=== PATIENT | male | born 1960 | race Caucasian/White ===

== ENCOUNTER 2018-08-20 17:51 | Observation (INO) | payer OTHER ==
[2018-08-20] MEDS ORDERED: DIPHENHYDRAMINE 50 MG/ML VIAL ONE (19:01)
--- NOTE | 2018-08-20 19:07 | RAD REPORT ---
EXAM DESCRIPTION: RAD - Chest Single View - 08/20/2018 6:26 pm CLINICAL HISTORY: Shortness of breath COMPARISON: None. TECHNIQUE: AP portable chest image was obtained 1821 hours . FINDINGS: Interstitial markings are prominent favored to be chronic interstitial lung disease. Patch y increased density retrocardiac left base is present. A minimal infiltrate is not excluded. Right co stophrenic angle is obscured from view. Heart size is normal. No acute vascular finding. Biapical sca rring and calcification of the pleura. No measurable pleural effusion and no pneumothorax. No acute b fransico abnormality seen. No acute aortic findings suspected. IMPRESSION: Suspected early retrocardiac left base infiltrate. Chronic interstitial lung disease and apical scarring.
[2018-08-20 19:10] LABS: Absolute Lymphocytes (CBC) 1.2 K/uL (0.7-4.9); Absolute Monocytes 0.4 K/uL (0.1-1.3); Absolute Neutrophil 5.7 K/uL (1.8-8.0); Basophils % 0.7 % (0-1.3); Eosinophils % 1.2 % (0-4.4); Lymphocytes % 16.4 % (15.3-44.8); MPV 8.1 fL (7.6-11.3); Monocytes % 5.9 % (3.3-12.3); RBC Red Blood Cell Count 4.88 M/uL (4.33-5.43)
[2018-08-20 19:16] LABS: Protime INR 1.19
[2018-08-20 19:31] LABS: ALT/SGPT 7 U/L (12-78); AST/SGOT 12 U/L (15-37); Alkaline Phosphatase 112 U/L (45-117); BUN Blood Urea Nitrogen 5 mg/dL (7-18); Bicarbonate 31 mmol/L (21-32); Bilirubin Direct 0.2 mg/dL (0-0.2); Bilirubin Total 0.4 mg/dL (0.2-1.0); Glucose Level 113 mg/dL (74-106); Magnesium 1.5 mg/dL (1.8-2.4); Protein, Total 7.3 g/dL (6.4-8.2); Sodium Level 139 mmol/L (136-145)
[2018-08-20 19:33] LABS: Potassium 2.8 mmol/L (3.5-5.1)
--- NOTE | 2018-08-20 19:42 | RAD REPORT ---
EXAM DESCRIPTION: CT - Head Brain Wo Cont - 08/20/2018 7:28 pm CLINICAL HISTORY: Transient alteration of awareness COMPARISON: None. TECHNIQUE: Axial 5 mm thick images of the head were obtained without IV contrast. All CT scans are performed using dose optimization technique as appropriate and may include automated exposure control or mA/KV adjustment according to patient size. FINDINGS: No intracranial hemorrhage, mass, edema or shift of mid-line structures. No acute infarcti on changes seen. No abnormal extra-axial fluid collections. Ventricles are normal. Partially visualized paranasal sinuses are clear. Right mastoid air cells are clear. There is near co mplete opacification of the left mastoid air cells. No bone destruction. No acute bony findings. IMPRESSION: No acute intracranial finding. Left-sided mastoiditis.
[2018-08-20] MEDS ORDERED: AZITHROMYCIN 500 MG/250 ML BAG ONE (20:01)
[2018-08-20] MEDS ORDERED: KCL 20 MEQ/100 mL IVPB 20 MEQ/100 ML BAG IV ONE (20:01)
[2018-08-20] MEDS ORDERED: NA CHLORIDE 0.9% 1,000 ML ONE (20:01)
[2018-08-20] MEDS ORDERED: NICOTINE 21 MG/PAT TD ONE (20:01)
[2018-08-20] MEDS ORDERED: CEFTRIAXONE/SWI 1gm 1 GM/10 ML SYR ONE (20:01)
[2018-08-20] MEDS ORDERED: Magnesium Sulfate 2gm IVPB 2 G/50 ML BAG IV ONE (20:01)
--- NOTE | 2018-08-20 20:13 | ER ---
Nurse's Notes [facility] Name: Sg Mix Age: 58 yrs Sex: Male : 1960 Arrival Date: 08/20/2018 Time: 17:55 Bed 6 Private MD: Ciara NICOLE Diagnosis: Pneumonia, unspecified organism;Altered mental status, unspecified;Hypomagnesemia;Hypokalemia Presentation: 08/20 17:59 Presenting complaint: "I was seen at [place] [facility] earlier today for abdominal pain, hb they gave me medicine for pain and for high blood pressure, and on the way home I started to feel weird and short of breath.". Transition of care: patient was not received from another setting of care. Onset of symptoms was August 20, 2018. Risk Assessment: Do you want to hurt yourself or someone else? Patient reports no desire to harm self or others. Care prior to arrival: None. 17:59 Method Of Arrival: Wheelchair hb 17:59 Acuity: DONIS 3 hb 18:31 Initial Sepsis Screen: Does the patient meet any 2 criteria? No. Patient's initial sv sepsis screen is negative. Does the patient have a suspected source of infection? No. Patient's initial sepsis screen is negative. Historical: - Allergies: 18:02 No Known Allergies; hb - Home Meds: 18:02 oxycodone-acetaminophen 10-325 mg Oral tab 1 tab every 4 hours [Active]; tizanidine hb oral oral [Active]; pantoprazole oral oral [Active]; Metoprolol Tartrate Oral [Active]; Lisinopril Oral [Active]; clonazepam Oral [Active]; - PMHx: 18:02 Scleraderma; Hypertension; hb - Immunization history:: Adult Immunizations up to date. - Social history:: Smoking status: Patient/guardian denies using tobacco. - Ebola Screening: : No symptoms or risks identified at this time. Screenin:25 Abuse screen: Denies threats or abuse. Denies injuries from another. Nutritional sv screening: No deficits noted. Tuberculosis screening: No symptoms or risk factors identified. Fall Risk None identified. Assessment: 18:25 General: Appears in no apparent distress. comfortable, Behavior is calm, cooperative, sv appropriate for age. Pain: Denies pain. Neuro: Level of Consciousness is awake, alert, obeys commands, Oriented to person, place, time, situation, Moves all extremities. Full function. Respiratory: Respiratory effort is even, unlabored, Respiratory pattern is regular, symmetrical. Derm: Skin is normal. 18:55 Reassessment: Patient appears in no apparent distress at this time. No changes from sv previously documented assessment. Patient and/or family updated on plan of care and expected duration. Pain level reassessed. Patient is alert, oriented x 3, equal unlabored respirations, skin warm/dry/pink. 20:01 Reassessment: Patient appears in no apparent distress at this time. Patient and/or ed1 family updated on plan of care and expected duration. Pain level reassessed. Patient is alert, oriented x 3, equal unlabored respirations, skin warm/dry/pink. Patient states feeling better. Patient states symptoms have improved. Vital Signs: 17:58 BP 153 / 79; Pulse 73; Resp 18; Temp 98.2; Pulse Ox 97% on R/A; Pain 8/10; hb 19:00 BP 184 / 72; Pulse 67; Resp 18; Pulse Ox 99% on R/A; sv 20:01 BP 141 / 55; Pulse 66; Resp 18; Pulse Ox 99% on R/A; Pain 5/10; ed1 21:28 BP 170 / 60; Pulse 73; Resp 17; Temp 98(O); Pulse Ox 98% on R/A; Pain 4/10; ed1 NIH Stroke Scale Scores: 19:51 NIHSS Score: 0 snw ED Course: 17:55 Patient arrived in ED. sb2 17:55 Ciara NICOLE is Private Physician. sb2 18:00 Triage completed. hb 18:02 Arm band placed on. hb 18:10 Neyda Swartz FNP-C is PHCP. snw 18:10 Adi Fang MD is Attending Physician. snw 18:21 Chest Single View XRAY In Process Unspecified. EDMS 18:25 Patient has correct armband on for positive identification. Bed in low position. Call sv light in reach. Adult w/ patient. Door closed. Head of bed elevated. 18:30 EKG done, by ED staff, reviewed by Neyda RANDALL. sv 18:32 Awaiting radiology results. sv 18:32 Ashley Woody, CHRISTAL is Primary Nurse. sv 18:55 Initial lab(s) drawn, by ar, sent to lab. Inserted saline lock: 20 gauge in right sv forearm, using aseptic technique. ,using aseptic technique. done by Blessing garcia Blood collected. 19:05 Report given to Sonya SIEGEL. sv 19:10 Primary Nurse role handed off by Ashley Woody RN ed1 19:10 Sonya Yanez RN is Primary Nurse. ed1 19:28 CT Head Brain wo Cont In Process Unspecified. EDMS 19:33 Notified Nurse Practitioner and/or Physician Battery Test Engineer of a critical lab result(s), ss potassium of 2.8. 19:40 Initial lab(s) drawn, by ar, sent to lab. First set of blood cultures drawn by me. ed1 19:57 Second set of blood cultures drawn by ar. ed1 20:10 Ekaterina Arriaga MD is Hospitalizing Provider. snw 21:00 No provider procedures requiring assistance completed. Patient admitted, IV remains in ed1 place. intact, No redness/swelling at site. Administered Medications: 18:58 Drug: Benadryl 12.5 mg Route: IVP; Site: right forearm; sv 19:55 Follow up: Response: No adverse reaction; Marked relief of symptoms ed1 19:55 Drug: NS 0.9% 1000 ml Route: IV; Rate: 125 ml/hr; Site: right forearm; ed1 21:18 Follow up: IV Status: Infusion continued upon admission ed1 19:55 Drug: Magnesium Sulfate 2 grams Route: IVPB; Infused Over: 2 hrs; Site: right forearm; ed1 20:58 Follow up: Response: No adverse reaction; IV Status: Completed infusion; IV Intake: [id number] 19:55 Drug: Nicoderm CQ 21 mg/24 hr 1 patches {Note: Placed on right upper arm.} Route: ed1 Transdermal; Site: affected area; 21:18 Follow up: Response: No adverse reaction ed1 20:59 Drug: Potassium Chloride 20 mEq Route: IV; Rate: calculated rate; Site: right forearm; ed1 22:11 Follow up: IV Status: Infusion continued upon admission ed1 21:17 Drug: Rocephin 1 grams Route: IV; Rate: calculated rate; Site: right forearm; ed1 21:25 Follow up: Response: No adverse reaction; IV Status: Completed infusion; IV Intake: [id number] 21:26 Drug: Zithromax 500 mg Route: IVPB; Infused Over: 1 hrs; Site: right forearm; ed1 22:11 Follow up: IV Status: Infusion continued upon admission ed1 Intake: 20:58 IV: 50ml; Total: 50ml. ed1 21:25 IV: 10ml; Total: 60ml. ed1 Outcome: 20:12 Decision to Hospitalize by Provider. snw 22:10 Admitted to Tele accompanied by nurse, family with patient, via wheelchair, room 427, ed1 with chart. 22:10 Condition: good 22:10 Discharge instructions given to patient, family, Instructed on the need for admit, Demonstrated understanding of instructions. 22:11 Patient left the ED. ed1 NIH Stroke Scale - NIH Stroke Score Date: 08/20/2018 Time: 19:51 Total Score = 0 1a. Level of Consciousness (LOC) - 0(Alert) 1b. Level of Consciousness (LOC) (Year \\T\\ Age) - 0(Both) 1c. LOC Commands (Open \\T\\ Closes Eyes/Suppository Molding Machine Operator) - 0(Both) 2. Best Gaze (Lateral Gaze Paresis) - 0(Normal) 3. Visual Field Loss - 0(No visual loss) 4. Facial Palsy - 0(Normal) 5a. Left Arm: Motor (10-second hold) - 0(No drift) 5b. Right Arm: Motor (10-second hold) - 0(No drift) 6a. Left Leg: Motor (5-second hold - always test supine) - 0(No drift) 6b. Right Leg: Motor (5-second hold - always test supine) - 0(No drift) 7. Limb Ataxia (finger/nose \\T\\ heel/brunner - test with eyes open) - 0(Absent) 8. Sensory Loss (pinprick arms/legs/face) - 0(Normal) 9. Best Language: Aphasia (description/naming/reading) - 0(No aphasia) 10. Dysarthria (speech clarity - read or repeat words) - 0(Normal) 11. Extinction and Inattention (visual/tactile/auditory/spatial/personal) - 0(No abnormality) Initials: snw Signatures: Dispatcher [employer] Ashley Ni RN RN sv Therrien, Shelly, SLAB INSPECTOR-C SLAB INSPECTOR-Csnw Zohreh Hunt, RN RN Sonya Yanez, RN RN ed1 Patty Bishop RN RN Rica Zaman sb2 Corrections: (The following items were deleted from the chart) 18:02 17:59 Presenting complaint: "I was seen at [facility] earlier today for hb abdominal pain, they gave me medicine for pain and for high blood pressure, and on the way home I started to feel weird and short of breath." 19:01 19:00 Pulse 67bpm; Resp 18bpm; Pulse Ox 99% RA; sv sv
--- NOTE | 2018-08-20 20:13 | EDPHYS ---
Physician Documentation [facility] Name: Sg Mix Age: 58 yrs Sex: Male : 1960 Arrival Date: 08/20/2018 Time: 17:55 Bed 6 Private MD: Ciara NICOLE ED Physician Adi Fang HPI: 08/20 19:57 This 58 yrs old Male presents to ER via Wheelchair with complaints of Blood snw Pressure Problem. 19:57 Onset: The symptoms/episode began/occurred suddenly, today. Associated signs and snw symptoms: Pertinent positives: abdominal pain, cough. 19:57 Modifying factors: The patient symptoms are alleviated by nothing. The patient has not snw experienced similar symptoms in the past. The patient has been recently seen by a physician: pt was seen at [place] for cough and abdominal pain. Pt was given 2 unknown blood pressure medications and had a CT scan of the abdomen. Spouse states pt became confused, emotional, short of breath, and was complaining of paresthesia. Pt family states pt was confused and talking out of his head.. Historical: - Allergies: 18:02 No Known Allergies; hb - Home Meds: 18:02 oxycodone-acetaminophen 10-325 mg Oral tab 1 tab every 4 hours [Active]; tizanidine hb oral oral [Active]; pantoprazole oral oral [Active]; Metoprolol Tartrate Oral [Active]; Lisinopril Oral [Active]; clonazepam Oral [Active]; - PMHx: 18:02 Scleraderma; Hypertension; hb - Immunization history:: Adult Immunizations up to date. - Social history:: Smoking status: Patient/guardian denies using tobacco. - Ebola Screening: : No symptoms or risks identified at this time. ROS: 19:55 Eyes: Negative for injury, pain, redness, and discharge, ENT: Negative for injury, snw pain, and discharge, Neck: Negative for injury, pain, and swelling, Cardiovascular: Negative for chest pain, palpitations, and edema. 19:55 Abdomen/GI: Negative for abdominal pain, nausea, vomiting, diarrhea, and constipation, Back: Negative for injury and pain, : Negative for injury, bleeding, discharge, and swelling. 19:55 Constitutional: Positive for body aches, fatigue, malaise, poor PO intake. 19:55 Respiratory: Positive for shortness of breath, at rest. 19:55 MS/extremity: Positive for paresthesias. 19:55 Skin: Positive for hx of scleraderma. 19:55 Neuro: Positive for altered mental status, tingling, Negative for loss of consciousness. Exam: 19:51 Head/Face: Normocephalic, atraumatic. snw 19:51 Neck: Trachea midline, no thyromegaly or masses palpated, and no cervical lymphadenopathy. Supple, full range of motion without nuchal rigidity, or vertebral point tenderness. No Meningismus. Chest/axilla: Normal chest wall appearance and motion. Nontender with no deformity. No lesions are appreciated. Cardiovascular: Regular rate and rhythm with a normal S1 and S2. No gallops, murmurs, or rubs. Normal PMI, no JVD. No pulse deficits. 19:51 Abdomen/GI: Soft, non-tender, with normal bowel sounds. No distension or tympany. No guarding or rebound. No evidence of tenderness throughout. Back: No spinal tenderness. No costovertebral tenderness. Full range of motion. Neuro: Awake and alert, GCS 15, oriented to person, place, time, and situation. Cranial nerves II-XII grossly intact. Motor strength 5/5 in all extremities. Sensory grossly intact. Cerebellar exam normal. Normal gait. 19:51 Constitutional: The patient appears awake, anxious, frail, uncomfortable. 19:51 Eyes: Pupils: constricted, recent cataract surgery, Extraocular movements: intact throughout, Conjunctiva: normal, Sclera: no appreciated abnormality. 19:51 ENT: Mouth: Tongue: displays fissures, areas of erythema. 19:51 Respiratory: the patient does not display signs of respiratory distress, Respirations: shallow respirations, tachypnea, Breath sounds: wheezing: is heard diffusely, bronchitic cough. 19:51 Skin: Appearance: normal except for affected area, thin, areas of contracture with scabbed areas over bony prominences of fingers. 19:51 Neuro: Orientation: is normal, Mentation: is normal, pt family states pt is more lucid than he has been., Sensation: tingling, that is moderate, of the right hand and left hand. Vital Signs: 17:58 BP 153 / 79; Pulse 73; Resp 18; Temp 98.2; Pulse Ox 97% on R/A; Pain 8/10; hb 19:00 BP 184 / 72; Pulse 67; Resp 18; Pulse Ox 99% on R/A; sv 20:01 BP 141 / 55; Pulse 66; Resp 18; Pulse Ox 99% on R/A; Pain 5/10; ed1 21:28 BP 170 / 60; Pulse 73; Resp 17; Temp 98(O); Pulse Ox 98% on R/A; Pain 4/10; ed1 NIH Stroke Scale Scores: 19:51 NIHSS Score: 0 snw MDM: 18:13 Patient medically screened. snw 20:12 Data reviewed: vital signs, nurses notes. Data interpreted: Pulse oximetry: on room air snw is 99 %. Interpretation: normal. Counseling: I had a detailed discussion with the patient and/or guardian regarding: the historical points, exam findings, and any diagnostic results supporting the discharge/admit diagnosis, the presence of at least one elevated blood pressure reading (>120/80) during this emergency department visit, lab results, radiology results, the need for further work-up and treatment in the hospital. 20:13 Physician consultation: Ekaterina Arriaga MD was called at 20:13, was contacted at 20:13, snw regarding admission, to the telemetry unit. and will see patient in ED. 08/20 18:47 Order name: Hepatic Function; Complete Time: 19:38 08/20 18:47 Order name: Magnesium; Complete Time: 19:38 08/20 18:47 Order name: Basic Metabolic Panel; Complete Time: 19:38 08/20 18:47 Order name: CBC with Diff; Complete Time: 19:16 08/20 18:47 Order name: Protime (+inr); Complete Time: 19:17 la08/20 18:47 Order name: Ptt, Activated; Complete Time: 19:17 la08/20 18:11 Order name: Chest Single View XRAY; Complete Time: 19:16 snw 08/20 18:47 Order name: CT Head Brain wo Cont; Complete Time: 19:44 la08/20 19:21 Order name: Blood Culture Adult (2) snw 08/20 19:21 Order name: Procalcitonin; Complete Time: 20:42 snw 08/20 19:21 Order name: Lactate; Complete Time: 20:13 snw 08/20 20:08 Order name: Influenza Screen (A ; Complete Time: 21:33 EDMS 08/20 20:29 Order name: Urinalysis EDOH 08/20 18:11 Order name: EKG; Complete Time: 18:12 snw 08/20 18:11 Order name: EKG - Nurse/Tech; Complete Time: 18:30 snw 08/20 18:47 Order name: Cardiac monitoring; Complete Time: 18:59 la1 08/20 18:47 Order name: IV Saline Lock; Complete Time: 18:59 la1 08/20 18:47 Order name: Labs collected and sent; Complete Time: 18:59 la1 08/20 18:47 Order name: NPO; Complete Time: 18:59 la1 08/20 18:47 Order name: O2 Per Protocol; Complete Time: 18:59 la1 08/20 18:47 Order name: O2 Sat Monitoring; Complete Time: 18:59 la1 Administered Medications: 18:58 Drug: Benadryl 12.5 mg Route: IVP; Site: right forearm; sv 19:55 Follow up: Response: No adverse reaction; Marked relief of symptoms ed1 19:55 Drug: NS 0.9% 1000 ml Route: IV; Rate: 125 ml/hr; Site: right forearm; ed1 21:18 Follow up: IV Status: Infusion continued upon admission ed1 19:55 Drug: Magnesium Sulfate 2 grams Route: IVPB; Infused Over: 2 hrs; Site: right forearm; ed1 20:58 Follow up: Response: No adverse reaction; IV Status: Completed infusion; IV Intake: [id number] 19:55 Drug: Nicoderm CQ 21 mg/24 hr 1 patches {Note: Placed on right upper arm.} Route: ed1 Transdermal; Site: affected area; 21:18 Follow up: Response: No adverse reaction ed1 20:59 Drug: Potassium Chloride 20 mEq Route: IV; Rate: calculated rate; Site: right forearm; ed1 22:11 Follow up: IV Status: Infusion continued upon admission ed1 21:17 Drug: Rocephin 1 grams Route: IV; Rate: calculated rate; Site: right forearm; ed1 21:25 Follow up: Response: No adverse reaction; IV Status: Completed infusion; IV Intake: [id number] 21:26 Drug: Zithromax 500 mg Route: IVPB; Infused Over: 1 hrs; Site: right forearm; ed1 22:11 Follow up: IV Status: Infusion continued upon admission ed1 Disposition: 08/20/18 20:12 Hospitalization ordered by Ekaterina Arriaga for Observation. Preliminary diagnosis are Pneumonia, unspecified organism, Altered mental status, unspecified, Hypomagnesemia, Hypokalemia. - Bed requested for Telemetry/MedSurg (observation). - Status is Observation. ed1 - Condition is Stable. - Problem is new. - Symptoms are unchanged. UTI on Admission? No NIH Stroke Scale - NIH Stroke Score Date: 08/20/2018 Time: 19:51 Total Score = 0 1a. Level of Consciousness (LOC) - 0(Alert) 1b. Level of Consciousness (LOC) (Year \T\ Age) - 0(Both) 1c. LOC Commands (Open \T\ Closes Eyes/Flask Pusher) - 0(Both) 2. Best Gaze (Lateral Gaze Paresis) - 0(Normal) 3. Visual Field Loss - 0(No visual loss) 4. Facial Palsy - 0(Normal) 5a. Left Arm: Motor (10-second hold) - 0(No drift) 5b. Right Arm: Motor (10-second hold) - 0(No drift) 6a. Left Leg: Motor (5-second hold - always test supine) - 0(No drift) 6b. Right Leg: Motor (5-second hold - always test supine) - 0(No drift) 7. Limb Ataxia (finger/nose \T\ heel/brunner - test with eyes open) - 0(Absent) 8. Sensory Loss (pinprick arms/legs/face) - 0(Normal) 9. Best Language: Aphasia (description/naming/reading) - 0(No aphasia) 10. Dysarthria (speech clarity - read or repeat words) - 0(Normal) 11. Extinction and Inattention (visual/tactile/auditory/spatial/personal) - 0(No abnormality) Initials: w Addendum: 08/22/2018 07:28 Co-signature as Attending Physician, Adi Fang MD. rn Signatures: Dispatcher [employer] Alison Saldana RN RN kl Verde, Stephanie, RN RN sv Therrien, Shelly, BREAKDOWN WORKER-C BREAKDOWN WORKER-Csnw Adi Fang MD MD rn Riggs, Erika, RN RN ed1 Tirso Campbell, CHRISTAL RN la1 Patty Bishop, RN RN Corrections: (The following items were deleted from the chart) 08/20 20:27 18:47 Accucheck ordered. la1 ed1 20:39 20:12 Hospitalization Ordered by Ekaterina Arriaga MD for Observation. Preliminary kl diagnosis is Pneumonia, unspecified organism; Altered mental status, unspecified; Hypomagnesemia; Hypokalemia. Bed requested for Telemetry/MedSurg (observation). Status is Observation. Condition is Stable. Problem is new. Symptoms are unchanged. UTI on Admission? No. snw 22:11 20:39 08/20/2018 20:12 Hospitalization Ordered by Ekaterina Arriaga MD for ed1 Observation. Preliminary diagnosis is Pneumonia, unspecified organism; Altered mental status, unspecified; Hypomagnesemia; Hypokalemia. Bed requested for Telemetry/MedSurg (observation). Status is Observation. Condition is Stable. Problem is new. Symptoms are unchanged. UTI on Admission? No. kl
--- NOTE | 2018-08-20 20:51 | P.HP ---
Certification for Inpatient Patient admitted to: Observation With expected LOS: <2 Midnights Practitioner: I am a practitioner with admitting privileges, knowledge of patient current condition, hospital course, and medical plan of care. Services: Services provided to patient in accordance with Admission requirements found in Title 42 Section 412.3 of the Code of Federal Regulations Patient History Date of Service: 08/20/18 Reason for admission: acute encephalpathy History of Present Illness: Mr Mix is a 58 years old male with history of HTN, Tobacco abuse, COPD, scleroderma, who start about 4 days ago with some nausea and lower abdominal pain. He denied vomiting or diarrhea, in fact he was constipated, last bowel movement was today. He denied fever or chills, but was feeling hot and cold alternatively. Today, went to [facility] for evaluation, his BP was elevated, he received some IV treatment and his BP decreased (according to his statement) they also did a abdominal CT with IV contrast, no report available at this time , but he was discharged home from ER. As soon the patient left the hospital, his noted that he was confused, and acting odd, so they decided to come to our ER for further evaluation. At arrival he was still confused, BP was 153/79, rest of vital signs were stable. He received Benadryl for potential allergic reaction. Graduall then, he improved from confusion. Currently, he is alert and oriented x 3. He denied numbness, tingling or weakness. Lab work shows normal WBC count, hypokalemia and hypomagnesemia. CT head without acute abnormalities. CXR remarkable for left lower lobe infiltrate consistent with pneumonia. Lactate and procalcitonin are pending. Home medications list reviewed: Yes - Past Medical/Surgical History -: HTN -: Scleroderma -: tobacco abuse -: COPD Past Surgical History: Reviewed- Non-Contributory - Family History Family History: Reviewed- Non-Contributory - Social History Smoking Status: Current every day smoker Counseled patient to stop smoking for: less than 10 minutes Smoking therapy provided: Yes Patient receptive to therapy: Yes CD- Drugs: No Place of Residence: Home Review of Systems 10-point ROS is otherwise unremarkable Physical Examination - Physical Exam General: Alert, In no apparent distress HEENT: Atraumatic, PERRLA, Mucous membr. moist/pink, EOMI, Sclerae nonicteric Neck: Supple, 2+ carotid pulse no bruit, No LAD, Without JVD or thyroid abnormality Respiratory: Clear to auscultation bilaterally, Normal air movement Cardiovascular: Regular rate/rhythm, Normal S1 S2 Gastrointestinal: Normal bowel sounds, No tenderness Musculoskeletal: No tenderness, Other (bilateral hand joint deformation due to scleroderma) Integumentary: No rashes Neurological: Normal speech, Normal strength at 5/5 x4 extr, Normal tone, Normal affect Lymphatics: No axilla or inguinal lymphadenopathy - Studies Laboratory Data (last 24 hrs) 08/20/18 18:55: PT 13.9 H, INR 1.19, APTT 29.5 08/20/18 18:55: WBC 7.5, Hgb 11.9 L, Hct 37.0 L, Plt Count 261 08/20/18 18:55: Sodium 139, Potassium 2.8 L*, BUN 5 L, Creatinine 0.69, Glucose 113 H, Magnesium 1.5 L, Total Bilirubin 0.4, AST 12 L, ALT 7 L, Alkaline Phosphatase 112 Assessment and Plan - Problems (Diagnosis) (1) Acute encephalopathy Current Visit: Yes Status: Acute (2) Abdominal pain Current Visit: Yes Status: Acute Qualifiers: Abdominal location: lower abdomen, unspecified Qualified Code(s): R10.30 - Lower abdominal pain, unspecified (3) HTN (hypertension) Current Visit: Yes Status: Acute Qualifiers: Hypertension type: essential hypertension Qualified Code(s): I10 - Essential (primary) hypertension (4) Scleroderma Current Visit: Yes Status: Acute (5) Hypokalemia Current Visit: Yes Status: Acute (6) Hypomagnesemia Current Visit: Yes Status: Acute (7) Tobacco abuse Current Visit: Yes Status: Acute - Plan The patient will be admitted to the hospital due to acute encephalopathy, already resolved, differential diagnosis include TIA/CVA, allergic reaction due to IV contrast. Will order brain MRI to start, echo and carotid doppler. CXR shows pneumonia, however, no signs or symptoms consistent with respiratory infection, will wave antibiotics at this moment. Pending UA, procalcitonin, lactate. Abdominal pain is unspecific and mild, awaiting records from [facility]. - Advance Directives Does patient have a Living Will: No Does patient have a Durable POA for Healthcare: No - Code Status/Comfort Care Code Status Assessed: Yes Code Status: Full Code
--- NOTE | 2018-08-20 21:49 | EKG ---
Test Date: 2018-08-20 Test Time: 18:28:08 Computer Systems Consultant: PEPE MEASUREMENT RESULTS: Intervals: Rate: 76 AK: 176 QRSD: 152 QT: 502 QTc: 564 [place]: P: 54 AK: 176 QRS: -50 T: 47 INTERPRETIVE STATEMENTS: Sinus rhythm with occasional and consecutive premature ventricular complexes Right bundle branch block Left anterior fascicular block Bifascicular block Abnormal ECG No previous ECG available for comparison Electronically Signed On 08-20-18 21:49:17 SPRAY MAKER by Joe Campo
[2018-08-20] MEDS ORDERED: HYDRALAZINE HCL 20 MG/ML VIAL IV PRN (22:39)
[2018-08-20] MEDS ORDERED: IPRATROPIUM BROM 0.5MG/2.5ML NEB PRN (22:39)
[2018-08-20] MEDS ORDERED: ONDANSETRON 4 MG/2 ML VIAL IV PRN (22:39)
[2018-08-20] MEDS ORDERED: ACETAMINOPHEN 500 MG TAB PO PRN (22:39)
[2018-08-20] MEDS ORDERED: ALBUTEROL 2.5 MG/3 ML NEB SOL NEB PRN (22:39)
[2018-08-20] MEDS: NA CHLORIDE 0.9% 1,000 ML IV SCH (23:04)
[2018-08-20] MEDS ORDERED: POTASSIUM CL SA 10 MEQ TAB PO ONE (23:38)
[2018-08-21] MEDS ORDERED: MELATONIN 3 MG TABLET PO PRN (01:17)
[2018-08-21] MEDS: NA CHLORIDE 0.9% 1,000 ML IV SCH ×2 (01:50→08:39)
[2018-08-21 03:30] LABS: Absolute Lymphocytes (CBC) 1.3 K/uL (0.7-4.9); Absolute Monocytes 0.5 K/uL (0.1-1.3); Absolute Neutrophil 4.8 K/uL (1.8-8.0); Basophils % 0.7 % (0-1.3); Eosinophils % 1.4 % (0-4.4); Hematocrit 32.5 % (39.6-49.0); Lymphocytes % 19.7 % (15.3-44.8); RBC Red Blood Cell Count 4.29 M/uL (4.33-5.43)
[2018-08-21 03:48] LABS: BUN Blood Urea Nitrogen 4 mg/dL (7-18); Bicarbonate 30 mmol/L (21-32); Glucose Level 114 mg/dL (74-106); HDL Cholesterol 42 mg/dL (40-60); LDL Cholesterol, Calculated 84 (<130); Potassium 3.3 mmol/L (3.5-5.1); Sodium Level 143 mmol/L (136-145)
[2018-08-21] MEDS ORDERED: POTASSIUM CL SA 10 MEQ TAB PO ONE (03:55)
[2018-08-21 06:07] LABS: Urine Appearance CLEAR; Urine Bilirubin NEGATIVE (NEG); Urine Blood NEGATIVE (NEG); Urine Color YELLOW; Urine Glucose NEGATIVE (NEG); Urine Protein NEGATIVE (NEG); Urine Specific Gravity 1.015 (1.005-1.030)
[2018-08-21 06:08] LABS: Urine Microscopic Reflex NO UMIC
[2018-08-21] MEDS ORDERED: ENOXAPARIN 40 MG/0.4 ML SQ SCH (09:00)
[2018-08-21] MEDS ORDERED: ASPIRIN 81 MG CHEWABLE TABLET PO SCH (09:00)
--- NOTE | 2018-08-21 10:23 | RAD REPORT ---
EXAM DESCRIPTION: MRI - Brain Wo Cont - 08/21/2018 10:16 am CLINICAL HISTORY: Stroke-like symptoms COMPARISON: CT head August 20 TECHNIQUE: Sagittal T1-weighted images were obtained along with axial PD, heavily T2-weighted and T2 -FLAIR images. Axial DWI and ADC mapping sequences were also obtained along with coronal heavily T2-w eighted images. FINDINGS: No intracranial hemorrhage, mass or acute infarction. There is no edema or shift of midlin e structures. No extra-axial fluid collections. De Jesus-matter/white matter junction is preserved. Signa l voids are seen as a normal finding in the major intracranial vessels. Patient has atrophy and very minimal chronic ischemic change. Ventricles are in proportion. No globe or orbital content abnormality. Left side mastoid opacification again noted. No acute paranasal sinus finding. IMPRESSION: No acute infarction changes are present. The patient has atrophy and very minimal chroni c ischemic change.
--- NOTE | 2018-08-21 17:21 | P.SSS ---
Patient History Date of Service: 08/21/18 Reason for admission: acute encephalpathy History of Present Illness: Mr Mix is a 58 years old male with history of HTN, Tobacco abuse, COPD, scleroderma, who start about 4 days ago with some nausea and lower abdominal pain. He denied vomiting or diarrhea, in fact he was constipated, last bowel movement was today. He denied fever or chills, but was feeling hot and cold alternatively. Today, went to [facility] for evaluation, his BP was elevated, he received some IV treatment and his BP decreased (according to his statement) they also did a abdominal CT with IV contrast, no report available at this time , but he was discharged home from ER. As soon the patient left the hospital, his noted that he was confused, and acting odd, so they decided to come to our ER for further evaluation. At arrival he was still confused, BP was 153/79, rest of vital signs were stable. He received Benadryl for potential allergic reaction. Graduall then, he improved from confusion. Currently, he is alert and oriented x 3. He denied numbness, tingling or weakness. Lab work shows normal WBC count, hypokalemia and hypomagnesemia. CT head without acute abnormalities. CXR remarkable for left lower lobe infiltrate consistent with pneumonia. Lactate and procalcitonin are pending. Allergies No Known Allergies Allergy (Verified 08/20/18 22:39) Home Medications: Lisinopril [Prinivil*] 20 mg PO BEDTIME 08/20/18 Metoprolol Succinate [Toprol Xl] 100 mg PO DAILY 08/20/18 Oxycodone HCl/Acetaminophen [Oxycodone-Acetaminophen 10-325] 1 each PO QIDP PRN 08/20/18 Pantoprazole [Protonix Tab*] 40 mg PO DAILY 08/20/18 Tizanidine [Zanaflex*] 4 mg PO Q6HP PRN 08/20/18 Diphenhydramine [Benadryl*] 25 mg PO BEDTIME PRN PRN 08/21/18 - Past Medical/Surgical History Has patient received pneumonia vaccine in the past: Yes Diabetic: No -: HTN -: Scleroderma -: tobacco abuse -: COPD - Family History Family History: Reviewed- Non-Contributory - Social History Smoking Status: Current every day smoker Alcohol use: No CD- Drugs: No Caffeine use: Yes Place of Residence: Home Review of Systems 10-point ROS is otherwise unremarkable Physical Examination - Vital Signs Temperature: 98.1 F Blood Pressure: 187/94 Pulse: 68 Respirations: 18 Pulse Ox (%): 99 - Physical Exam General: Alert, In no apparent distress, Oriented x3 HEENT: Atraumatic, PERRLA, Mucous membr. moist/pink, EOMI, Sclerae nonicteric Neck: Supple, 2+ carotid pulse no bruit, No LAD, Without JVD or thyroid abnormality Respiratory: Clear to auscultation bilaterally, Normal air movement Cardiovascular: Regular rate/rhythm, Normal S1 S2 Gastrointestinal: Normal bowel sounds, No tenderness Musculoskeletal: Contractures (Chronic) Integumentary: Skin lesion (Chronic, secondary to scleroderma) Neurological: Normal gait, Normal speech, Normal strength at 5/5 x4 extr, Normal tone, Normal affect - Studies Laboratory Data (last 24 hrs) 08/20/18 18:55: PT 13.9 H, INR 1.19, APTT 29.5 08/20/18 18:55: WBC 7.5, Hgb 11.9 L, Hct 37.0 L, Plt Count 261 08/20/18 18:55: Sodium 139, Potassium 2.8 L*, BUN 5 L, Creatinine 0.69, Glucose 113 H, Magnesium 1.5 L, Total Bilirubin 0.4, AST 12 L, ALT 7 L, Alkaline Phosphatase 112 Treatment Summary: Patient was admitted to the hospital for acute encephalopathy. Differential diagnosis included TIA/CVA and allergic reaction due to IV contrast. The Benadryl does given to patient helped tremendously, and patient returned to baseline mentation prior to even being admitted. He was admitted for observation. MRI of the brain was negative for any acute abnormalities. He remained otherwise stable without any signs or symptoms consistent with a respiratory infection. His physical exam remained normal and, therefore he was not started on any antibiotics at this time. His UA was negative, pro calcitonin was negative and lactic acid was in the normal range. His abdominal pain also resolved. Prior to discharge, patient was complaining of pain in his hands and fingers, which is chronic for him secondary to the scleroderma. He stated that this pain started because he has not had any of his pain medications since yesterday. He does follow up with the scleroderma group, though does not have a senior field engineer in this area. He was recommended to follow up with his primary care physician and senior field engineer. Prior to discharge, he was alert oriented x4, hemodynamically stable and did not have any complaints of any symptoms at this time. - Disposition Disposition: ROUTINE DISCHARGE Condition: GOOD Patient Discharge Instructions: Please follow up with the primary care physician in 1 week. Please continue checking blood pressures at home, and according on the longer to take with you to your primary care physician appointment. Please return to the emergency room for worsening symptoms Diet: AHA Activity: Ad jerica
[2018-08-21] MEDS ORDERED: LISINOPRIL 20 MG TAB PO SCH (21:00)
[2018-08-22] MEDS ORDERED: METOPROLOL XL 100 MG TAB PO SCH (09:00)
[2018-08-22] MEDS ORDERED: PANTOPRAZOLE 40MG TABLET PO SCH (09:00)
== END 2018-08-21 17:35 | disposition home or self-care (01) ==
LOC: ER 17:51 → ERHOLD 20:35 → 4TH 22:06
PROVIDERS: ADMIT Internal Medicine; ATTEND Family Medicine
DX: G93.40 Encephalopathy, unspecified (principal); I10 Essential (primary) hypertension; M34.9 Systemic sclerosis, unspecified; R10.30 Lower abdominal pain, unspecified; E87.6 Hypokalemia; E83.42 Hypomagnesemia; F17.210 Nicotine dependence, cigarettes, uncomplicated
CPT/HCPCS: 36415; 70450; 70551; 71045; 80048; 80061; 80076; 81003; 83605; 83735; 84132; 84145; 85025; 85610; 85730; 87040; 87804; 93005; 96365; 96367; 96368; 96375; 99285; G0378; J0360; J0456; J0696; J1650; J3475; J7030